=== PATIENT | male | born 1950 | race Caucasian/White ===

== ENCOUNTER 2023-04-11 16:02 | Emergency (ER) | payer OTHER, MEDICARE ==
[~2023-04-11 16:02] MED LIST: BISA-79 PO; DOCU250C71 PO; [UNRECOGNIZED DRUG - CODE] PO
--- NOTE | 2023-04-11 17:07 | NUR ---
PT TRIAGED. PT STABLE. PLACED PT IN ER WAITING AREA. WILL CONTINUE TO MONITOR.
[2023-04-11 17:10] VITALS: BP_SYST 129
--- NOTE | 2023-04-11 18:59 | NUR ---
Placed in room 06. Placed on bus driver/monitor, blood pressure machine and pulse oximeter. To gown for exam. Side rails up. Report given to AMADOU BEDOYA AND AMADOU ANTHONY.
--- NOTE | 2023-04-11 19:35 | NUR ---
PT BIB FROM HOME C/O URINARY RETENTION X 7HRS. PT STATES HAS NOT BEEN ABLE TO URINATE SINCE 1200HRS. PT DENIES PAIN, NAUSEA, VOMITING AND DIARRHEA. PT HX OF DEMENTIA, MULTIPLE FALLS, AXIETY, PNEUMONIA AND BLOOD CANCER PER . PT RESTING IN BED VSS WITH BEDSIDE
[2023-04-11 20:02] LABS: BILIRUBIN,URINE NEGATIVE (NEGATIVE); BLOOD, URINE NEGATIVE (NEGATIVE); CLARITY/URINE CLEAR (CLEAR); COLOR,URINE YELLOW (YELLOW); GLUCOSE,URINE NEGATIVE (NEGATIVE); KETONES,URINE NEGATIVE (NEGATIVE); LEUKOCYTE ESTERASE ,URINE NEGATIVE (NEGATIVE); NITRITE, URINE NEGATIVE (NEGATIVE); PROTEIN URINE NEGATIVE (NEGATIVE); UROBILINOGEN,URINE 0.2 (0.2-1.0)
--- NOTE | 2023-04-11 20:30 | NUR ---
ER at bedside examining patient.
[2023-04-11 21:05] VITALS: BP_SYST 129
--- NOTE | 2023-04-11 21:07 | NUR ---
Patient given written and verbal discharge instructions and verbalizes understanding. ER MD discussed with patient the results and treatment provided. Patient in stable condition. ID arm band removed. Patient educated on BPH and to follow up with PMD. Pain Scale [0]. Opportunity for questions provided and answered. Medication side effect fact sheet provided.
== END 2023-04-11 21:05 | disposition home or self-care (01) ==
LOC: SED 16:02
DX: R33.9 Retention of urine, unspecified (principal); R39.198 Other difficulties with micturition; Z88.1 Allergy status to other antibiotic agents; Z85.72 Personal history of non-Hodgkin lymphomas; Z79.899 Other long term (current) drug therapy
CPT/HCPCS: 81003; 99284